=== PATIENT | male | born 1995 | race Caucasian/White ===

== ENCOUNTER 2019-09-26 11:48 | Emergency (ER) | payer SELFPAY ==
[~2019-09-26] VITALS: Ht 172.7 cm; Wt 81.6 kg
[2019-09-26 11:59] VITALS: Ht 172.7 cm; Wt 81.6 kg
[2019-09-26 13:33] VITALS: BP 120/72
== END 2019-09-26 13:33 | disposition home or self-care (01) ==
LOC: ED 11:48
DX: S96.912A Strain of unspecified muscle and tendon at ankle and foot level, left foot, initial encounter (principal); W22.8XXA Striking against or struck by other objects, initial encounter; Y93.89 Activity, other specified; Y92.89 Other specified places as the place of occurrence of the external cause; Y99.8 Other external cause status
CPT/HCPCS: Q0092